=== PATIENT | male | born 1970 | race Two or more races ===

== ENCOUNTER 2020-07-10 04:11 | Emergency (ER) | payer SELFPAY ==
[~2020-07-10] VITALS: Ht 208.3 cm; Wt 120.2 kg
[2020-07-10 04:20] VITALS: BP 155/92
--- NOTE | 2020-07-10 04:30 | NUR ---
ED Nurse Note: Pt on home O2 ambulated back to ED, aao x4. Pt c/o chest pain that radiates to back and jaw. Pt reports this feels like previous DC. Pt took nitro tabs x2. Pt also reports he passed out earlier this morning.
--- NOTE | 2020-07-10 04:40 | Emergency Room Report ---
History of Present Illness General Chief Complaint: Chest Pain Source: Patient Present Illness HPI 50-year-old male with history of IN and refusal of stent placement 5 years ago, DVT but noncompliant with warfarin, hypertension and diabetes and noncompliant with medications, here with sudden onset chest pain with syncope. Patient says that about 12 hours prior to come to the emergency department he began to feel chest pain radiating to his neck and his left arm. He took several nitroglycerin sublingual and had some resolution of the symptoms. Says however that as the day progressed he began to have worsening chest pain. Pain is pressure-like in nature located in the substernal region and radiates to his left arm into his neck. Says that earlier tonight he had a syncopal episode and says that he believes that he was unconscious for about 1 hour. When he awoke he drove himself to the emergency department. Denies headache, vision changes, fevers, chills, cough, back pain, abdominal pain, vomiting, diarrhea, dysuria. Has felt nauseous but is not vomited. 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 Tachypneic Head: normocephalic, atraumatic Eyes: bilateral eye normal inspection, bilateral eye PERRL ENT: hearing grossly normal, normal pharynx, no angioedema, normal voice Neck: full range of motion, supple/symm/no masses Respiratory: chest non-tender, lungs clear, normal breath sounds, speaking full sentences, other - Tachypneic, subjective shortness of breath Cardiovascular #1: regular rate, rhythm, no edema Cardiovascular #2: 2+ carotid (R), 2+ carotid (L), 2+ radial (R), 2+ radial (L), 2+ dorsalis pedis (R), 2+ dorsalis pedis (L) Gastrointestinal: normal bowel sounds, non tender, soft, non-distended, no guarding, no rebound Rectal: deferred Genitourinary: normal inspection, no CVA tenderness Musculoskeletal: back normal, normal range of motion, gait/station normal, other - Left lower extremity swelling diffusely. Positive Homans' sign Neurologic: alert, motor strength/tone normal, oriented x3, sensory intact, responsive, speech normal Psychiatric: judgement/insight normal, memory normal, mood/affect normal, no suicidal/homicidal ideation Lymphatic: no adenopathy Medical Decision Making Diagnostic Impression: Primary Impression: Chest pain ER Course CXR: No infiltrate/effusion. Mediastinum within normal limits. No consolida tions. No free air under the diaphragm. No bony abnormalities EKG: NSR, rate 88 bpm. Bifascicular block.. No ectopy Rhythm strip: patient monitored for arrhythmias - no malignant dysrhythmias, runs of PVCs, nor pauses noted Laboratory Tests Test 07/10/20 04:43 07/10/20 04:55 White Blood Count 12.0 K/UL (4.8-10.8) H Red Blood Count 5.65 M/UL (4.70-6.10) Hemoglobin 16.1 G/DL (14.2-18.0) Hematocrit 48.8 % (42.0-52.0) Mean Corpuscular Volume 86 FL (80-99) Mean Corpuscular Hemoglobin 28.5 PG (27.0-31.0) Mean Corpuscular Hemoglobin Concent 32.9 G/DL (32.0-36.0) Red Cell Distribution Width 13.1 % (11.6-14.8) Platelet Count 267 K/UL (150-450) Mean Platelet Volume 8.4 FL (6.5-10.1) Neutrophils (%) (Auto) 64.2 % (45.0-75.0) Lymphocytes (%) (Auto) 25.2 % (20.0-45.0) Monocytes (%) (Auto) 6.1 % (1.0-10.0) Eosinophils (%) (Auto) 3.6 % (0.0-3.0) H Basophils (%) (Auto) 1.0 % (0.0-2.0) Prothrombin Time 11.2 SEC (9.30-11.50) Prothrombin Time INR 1.0 (0.9-1.1) Activated Partial Thromboplast Time 29 SEC (23-33) Serum Alcohol < 3 mg/dL Sodium Level 138 MMOL/L (136-145) Potassium Level 3.5 MMOL/L (3.5-5.1) Chloride Level 102 MMOL/L (98-107) Carbon Dioxide Level 25 MMOL/L (21-32) Blood Urea Nitrogen 8 mg/dL (7-18) Creatinine 1.1 MG/DL (0.55-1.30) Estimated Glomerular Filtration Rate > 60 mL/min (>60) Glucose Level 141 MG/DL (74-106) H Calcium Level 9.0 MG/DL (8.5-10.1) Total Bilirubin 0.6 MG/DL (0.2-1.0) Aspartate Amino Transferase (AST) 15 U/L (15-37) Alanine Aminotransferase (ALT) 24 U/L (12-78) Alkaline Phosphatase 88 U/L (46-116) Troponin I 0.000 ng/mL (0.000-0.056) Pro-B-Type Natriuretic Peptide 9 pg/mL (0-125) Total Protein 7.8 G/DL (6.4-8.2) Albumin 3.7 G/DL (3.4-5.0) Globulin 4.1 g/dL 50-year-old male with a history of DVT and CAD noncompliant with medications and refusing stents in the past, here with chest pain. Patient was hemodynamically stable however was highly anxious and requesting oxygen. He was put on 4 L nasal cannula and said that he felt subjectively improved. Never had any episodes of tachycardia or hypoxia. Blood pressure has remained normal throug hout his stay in the emergency department. Left lower extremity did appear larger than the right lower extremity. Ultrasound currently pending. Patient requested multiple doses of morphine. Had received 4 mg IV and said "I need 2 more milligrams or I will be able to get the CAT scan." Patient was offered Ativan but refused and requested morphine instead. Was given 2 more milligrams of morphine. CTA chest currently pending to rule out pulmonary embolism. EKG showed bifascicular block but no evidence of any acute ischemia. Troponin negative. CBC and CMP unremarkable. Currently awaiting results of imaging studies. Signed out to oncoming physician. Last Vital Signs Date Time Temp Pulse Resp B/P (MAP) Pulse Ox O2 Delivery O2 Flow Rate FiO2 07/10/20 04:20 98.1 91 24 155/92 (113) 98 Nasal Cannula 4.0 Referrals: NOT CHOSEN IPA/,REFERRING (PCP) Jermaine Granado M.D. Jul 10, 2020 04:40
--- NOTE | 2020-07-10 04:44 | NUR ---
ED Nurse Note: IV started, labs sent.
[2020-07-10] MEDS ORDERED: Morphine Sulfate 4mg/ml Inj (IV USE ONLY) IVP ONE (04:45)
[2020-07-10] MEDS ORDERED: Omnipaque 350 100ml vial INJ PRN (04:45)
[2020-07-10 04:52] LABS: EOSINOPHILS % (AUTO) 3.6 % (0.0-3.0); HEMATOCRIT 48.8 % (42.0-52.0); HEMOGLOBIN 16.1 G/DL (14.2-18.0); LYMPHOCYTES % (AUTO) 25.2 % (20.0-45.0); MEAN CORPUSCULAR VOLUME 86 FL (80-99); MONOCYTES % (AUTO) 6.1 % (1.0-10.0); NEUTROPHILS % (AUTO) 64.2 % (45.0-75.0); PLATELET COUNT 267 K/UL (150-450); RED BLOOD COUNT 5.65 M/UL (4.70-6.10); RED CELL DISTRIBUTION WIDTH 13.1 % (11.6-14.8)
[2020-07-10] MEDS ORDERED: Nitroglycerin Subl 0.4mg tab SL PRN (05:00)
--- NOTE | 2020-07-10 05:11 | Diagnostic Imaging Report ---
EXAM: XR Chest, 1 View CLINICAL HISTORY: SOB TECHNIQUE: Frontal view of the chest. COMPARISON: No relevant prior studies available. FINDINGS: Lungs: Unremarkable. No consolidation. Pleural space: Unremarkable. No pneumothorax. Heart: Unremarkable. No cardiomegaly. Mediastinum: Unremarkable. Bones/joints: Unremarkable. IMPRESSION: No acute cardiopulmonary process.
[2020-07-10 05:28] LABS: BLOOD UREA NITROGEN 8 mg/dL (7-18); CARBON DIOXIDE 25 MMOL/L (21-32); CHLORIDE 102 MMOL/L (98-107); POTASSIUM 3.5 MMOL/L (3.5-5.1); SODIUM 138 MMOL/L (136-145)
[2020-07-10 05:29] LABS: CREATININE 1.1 MG/DL (0.55-1.30)
[2020-07-10] MEDS ORDERED: LORazepam Inj 2mg/ml 1ml IV ONE (05:30)
[2020-07-10 05:39] LABS: ALANINE AMINOTRANSFERASE 24 U/L (12-78); ASPARTATE AMINO TRANSFERASE 15 U/L (15-37); BILIRUBIN,TOTAL 0.6 MG/DL (0.2-1.0)
[2020-07-10 05:40] LABS: ALBUMIN 3.7 G/DL (3.4-5.0); ALKALINE PHOSPHATASE 88 U/L (46-116)
[2020-07-10] MEDS ORDERED: Morphine Sulfate 2mg/ml Inj(IV/IM USE ONLY) IVP ONE (05:45)
--- NOTE | 2020-07-10 06:02 | NUR ---
ED Nurse Note: Pt to CT.
[2020-07-10 06:53] VITALS: BP 126/80
--- NOTE | 2020-07-10 06:53 | NUR ---
ED Nurse Note: US finished with pt.
--- NOTE | 2020-07-10 07:04 | Diagnostic Imaging Report ---
EXAM: CT Angiography Chest With Intravenous Contrast CLINICAL HISTORY: CP TECHNIQUE: Axial computed tomographic angiography images of the chest with intravenous contrast. CTDI is 3.50 mGy and DLP is 217.10 mGy-cm. One or more of the following dose reduction techniques were used: automated exposure control, adjustment of the mA and/or kV according to patient size, use of iterative reconstruction technique. MIP reconstructed images were created and reviewed. COMPARISON: Chest x-ray of 07/10/2020 at 0432 hours FINDINGS: Artifacts: Respiratory motion artifact degrades detail. Pulmonary arteries: Unremarkable. No pulmonary embolism. Aorta: No acute findings. No thoracic aortic aneurysm. Lungs: Unremarkable. No mass. No consolidation. Pleural space: Unremarkable. No significant effusion. No pneumothorax. Heart: Unremarkable. No cardiomegaly. No significant pericardial effusion. No evidence of RV dysfunction. Bones/joints: No acute fracture. No dislocation. Soft tissues: Bilateral gynecomastia. Lymph nodes: Unremarkable. No enlarged lymph nodes. IMPRESSION: No evidence of pulmonary emboli. No acute cardiopulmonary process.
--- NOTE | 2020-07-10 08:55 | Emergency Room Report ---
Physical Exam Vital Signs Date Time Temp Pulse Resp B/P (MAP) Pulse Ox O2 Delivery O2 Flow Rate FiO2 07/10/20 04:20 91 24 Nasal Cannula 4.0 07/10/20 04:20 98.1 155/92 (113) 98 Medical Decision Making Diagnostic Impression: Primary Impression: Chest pain ER Course Assumed care of the patient from the previous provider at approximately 0600. Please refer to initial note for full history and physical exam. Briefly, 50-year-old male presenting with chest pain. Labs largely unremarkable. Troponin negative. Positive for THC. Time of signout CTA was pending. No pulmonary embolism or other major pathology identified. Patient has been admitted to panel physician, Dr. Dlegadillo. Last Vital Signs Date Time Temp Pulse Resp B/P (MAP) Pulse Ox O2 Delivery O2 Flow Rate FiO2 07/10/20 06:53 98.1 86 12 126/80 99 Nasal Cannula 3.0 86 Disposition: ADMITTED INPATIENT Condition: Stable Referrals: NOT CHOSEN IPA/,REFERRING (PCP) Jonathan Bedoya MD Jul 10, 2020 08:55
--- NOTE | 2020-07-10 09:14 | NUR ---
pt resting with eyes closed sitting up in no noted distress. preparing a hospital bed for pt to move him over. pt opened eyes and started moaning and groaning. explained to pt that he would be more comfortable in the hosptial bed due to no rooms on the floors. placed pt in the hosptial bed, placed back on monitor and belongings at the bedside. pt became agitated and asked why he's even here. explained to pt that this RN was assisting his nurse and would have her speak with him once she is available. pt stated he wanted more pain meds, informed him that the dr stated he couldn't have anymore at this time, he recently had some. pt stated, "fine", "fine" and requested his jeans. gave pt his jeans and updated his nurse.
--- NOTE | 2020-07-10 09:25 | NUR ---
patient is awake alert oriented states he does not to be in er wants to go to the room in the hospital . i explained to the patient no beds avilable at this time and placed him on a hospital bed for comfort. nursing labor supervisor was notified regarding the problem
--- NOTE | 2020-07-10 09:30 | Diagnostic Imaging Report ---
EXAM: US Duplex Left Lower Extremity Veins CLINICAL HISTORY: PAIN TECHNIQUE: Real-time duplex ultrasound scan of the left lower extremity veins integrating B-mode two-dimensional vascular structure, Doppler spectral analysis, color flow Doppler imaging and compression. COMPARISON: No relevant prior studies available. FINDINGS: Deep veins: No DVT in the visualized common femoral, femoral, proximal deep femoral or popliteal veins. The veins demonstrate normal color flow, are normally compressible, with normal phasic flow and/or augmentation response. Superficial veins: No thrombus in the visualized great saphenous vein. Soft tissues: No acute findings. No popliteal cyst. IMPRESSION: Normal left lower extremity duplex venous ultrasound.
--- NOTE | 2020-07-10 09:31 | NUR ---
Patient called someone on the phone and told them to come pick him up and take him to [facility]. He got dressed and left AMA.
--- NOTE | 2020-07-12 17:40 | Cardiology Report ---
APPROVED REPORT EKG Measurement Heart [id number] <Conclusion> Normal sinus rhythm Right bundle branch block Left anterior fascicular block Bifascicular block Abnormal ECG
== END 2020-07-10 09:20 | disposition left against medical advice (07) ==
LOC: EMR 04:24
DX: R07.9 Chest pain, unspecified (principal); I45.2 Bifascicular block; I10 Essential (primary) hypertension; I25.2 Old myocardial infarction; E11.9 Type 2 diabetes mellitus without complications; Z95.5 Presence of coronary angioplasty implant and graft; Z86.718 Personal history of other venous thrombosis and embolism; I25.10 Atherosclerotic heart disease of native coronary artery without angina pectoris; Z91.14 Patient's other noncompliance with medication regimen
CPT/HCPCS: 36415; 71045; 71275; 80053; 80307; 83880; 84484; 85025; 85610; 85730; 93005; 93971; 96374; 96375; 96376; 99285; G0480; J2270; J2405; Q9967